=== PATIENT | male | born 1945 | race African-American/Black ===

== ENCOUNTER 2017-04-21 05:01 | Emergency (ER) | payer OTHER ==
[~2017-04-21] VITALS: Ht 190.5 cm; Wt 73.0 kg
--- NOTE | ~2017-04-21 | EKG ---
[address] [place] [address] ELECTROCARDIOGRAM REPORT Name: NKECHI BABIN Room #: DEP Viridiana#: [id number] Admission: 04/21/17 Attend Phys: Discharge: 04/21/17 Date of : 43 Report #: [id number] THIS REPORT FOR: //name// [facility] ED Test Date: 2017-04-21 Test Time: 05:37:52 Pat Name: NKECHI BABIN Department: Room: Gender: Collections Manager: JBNAHOMI : 1945 Requested By: Katty Piña Order Number: [id number] MD: Rakesh Marquez Measurements Intervals [place] Rate: 64 P: OK: QRS: -33 QRSD: 126 T: 40 QT: 369 QTc: 381 Interpretive Statements Atrial flutter with predominant 4:1 AV block Leftward axis Poor R wave progression Nonspecific T wave abnormality No previous ECG available for comparison Electronically Signed On 04-21-2017 8:43:01 [employer]ALITY ASSURANCE SUPERVISOR FINAL by Rakesh Marquez [email or web address] <ELECTRONICALLY SIGNED> By: Rakesh Marquez MD, [facility] 04/21/17 0843 [id number] 0537 Rakesh Marquez MD, FACC /EPI
[2017-04-21 05:15] LABS: HCO3 27.4 mmol/L (22.0-26.0); PCO2 36.5 mmHg (35.0-45.0); PO2 65.8 mmHg (80.0-100.0); pH 7.494 (7.360-7.450); sO2 94.5 % (92.0-98.0)
[2017-04-21] MEDS ORDERED: TYLENOL325 MG PO (05:16)
[2017-04-21] MEDS ORDERED: HYDROCODONE-AP1 EAC6 PO (05:17)
[2017-04-21] MEDS ORDERED: VENTOLIN HFA 1818 GM INH (05:17)
[2017-04-21] MEDS ORDERED: ASPIR 8181 MG PO (05:18)
[2017-04-21] MEDS ORDERED: CEFTRIAXONE2 G1 IVPB (05:18)
[2017-04-21] MEDS ORDERED: ATORVASTATIN CA80 MG PO (05:19)
[2017-04-21] MEDS ORDERED: DIGOXIN250 MCG PO (05:20)
[2017-04-21] MEDS ORDERED: SYMBICORT160 MCG/4. INH (05:20)
[2017-04-21] MEDS ORDERED: COLACE100 MG PO (05:21)
[2017-04-21] MEDS ORDERED: DIPHENHIST50 MG PO (05:21)
[2017-04-21] MEDS ORDERED: LASIX 40 MG TAB40 M2 PO (05:22)
[2017-04-21] MEDS ORDERED: LATANOPROST OPHTHALMIC (05:25)
[2017-04-21] MEDS ORDERED: HUMALOG100 UNIT/1 SUBQ ×2 (05:26→05:47)
[2017-04-21] MEDS ORDERED: LANTUS100 UNIT/M SUBQ (05:27)
[2017-04-21 05:43] LABS: ABSOLUTE NEUTROPHILS 4.1 thou/uL (1.4-8.2); BASOPHILS 0.9 % (0.0-2.0); EOSINOPHILS 1.6 % (0.0-3.0); HEMATOCRIT 24.6 % (42.0-52.0); HEMOGLOBIN 7.9 gm/dL (14.0-18.0); MCHC 32.1 g/dL (28.0-37.0); MCV 90.4 fL (80.0-100.0); MONOCYTES 11.9 % (1.0-8.0); PLATELET COUNT 138 thou/uL (150-400); POLYS 58.6 % (36.0-66.0); RBC 2.73 mil/uL (4.50-6.00); RDW 18.3 % (10.5-14.5)
[2017-04-21] MEDS ORDERED: PRINIVIL20 M1 PO (05:48)
[2017-04-21] MEDS ORDERED: LIDODERM1 EACH TRANSDERM (05:48)
[2017-04-21] MEDS ORDERED: KLOR-CON 1010 MEQ PO (05:49)
[2017-04-21] MEDS ORDERED: LOPRESSOR25 PO (05:49)
[2017-04-21] MEDS ORDERED: ALDACTONE25 MG PO (05:50)
[2017-04-21] MEDS ORDERED: XARELTO20 MG PO (05:50)
[2017-04-21] MEDS ORDERED: XANAX 0.5 MG0.5 MG PO (05:51)
[2017-04-21] MEDS ORDERED: DUONEB 2.5-0.5 M3 ML INH (05:51)
== END 2017-04-21 07:40 | disposition home or self-care (01) ==
LOC: ER 05:01
PROVIDERS: Emergency Medicine
DX: R06.03 Acute respiratory distress (principal); D64.9 Anemia, unspecified; R09.02 Hypoxemia; Z88.0 Allergy status to penicillin